=== PATIENT | female | born 1960 | race Caucasian/White ===

== ENCOUNTER 2017-05-03 00:37 | Emergency (ER) | payer BC ==
[2017-05-03 00:45] VITALS: BP 131/79
[2017-05-03] MEDS ORDERED: Diphtheria,Pertussis(Acell),Tetanus Vaccine 0.5 ML SDV IM ONE (00:46)
[2017-05-03] MEDS ORDERED: Lidocaine 1% 30 ML SDV INJECT ONE (00:46)
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
== END 2017-05-03 01:27 | disposition home or self-care (01) ==
LOC: DL.ED 00:37
DX: S02.5XXA Fracture of tooth (traumatic), initial encounter for closed fracture (principal); S01.511A Laceration without foreign body of lip, initial encounter; W01.10XA Fall on same level from slipping, tripping and stumbling with subsequent striking against unspecified object, initial encounter
CPT/HCPCS: 12011; 90471; 90715; 99283